=== PATIENT | female | born 2005 | race Caucasian/White ===

== ENCOUNTER 2024-01-25 21:40 | Emergency (ER) | payer OTHER, SELFPAY ==
[2024-01-25 21:42] VITALS: BP 126/70; PULSE 109; RESP 15; TEMP 36.9; O2SAT 99; BMI 25.0
--- NOTE | 2024-01-25 21:58 | ED_ITS ---
Discharge Plan Disposition Patient Disposition: Home, Self-Care Condition: Good Referrals Follow up/Referrals: Summer Morel APRN [Primary Care Provider] - See instructions Clinical Impressions Clinical Impression: Gastritis Instructions Patient Instructions: DI for Diarrhea and Traveler's Diarrhea -- Adult, DI for Diarrhea and Traveler's Diarrhea -- Child, DI for Nausea -- Adult, DI for Nausea -- Child Discharge ED Provider: Bhavani Patino General Adult HPI General Chief complaint: Nausea/Vomiting/Diarrhea Stated complaint: Vomiting black stuff,stated after new med Time Seen by Provider: 01/25/24 21:54 History of Present Illness HPI narrative: This patient is a 18-year-old female with psych PMH presenting to the emergency department for evaluation with concern for vomiting. Patient reports that she has been vomiting for about a week after increasing her home psych medications. She notes that her emesis was initially normal color, however it has turned dark and looks like coffee today. Given this, she decided to come in. She denies any significant pain, but states she does have heartburn. No changes in her bowel movements, such as diarrhea, melena, hematochezia, or other concerns. No other concerns noted at this time. No history of gastric or stomach issues. Related Data Allergies Allergy/AdvReac Type Severity Reaction Status Date / Time No Known Allergies Allergy Verified 01/25/24 22:03 [facility] Disclaimer: The information contained in this section may have been updated after the patient was seen, as this information can be updated by other users. Social History Smoking Status: Current every day smoker alcohol intake: never current occupational status: employed Travel in the last 8 weeks: None ROS Obtained: Yes All systems reviewed & no additional complaints except as documented Physical Exam General General appearance: alert and in no apparent distress Head Head exam: atraumatic and normocephalic Eye Eye exam: Present normal appearance, PERRL and EOMI ENT ENT exam: Present normal exam, normal oropharynx, mucous membranes moist and normal external ear exam Neck Neck exam: Present normal inspection, full ROM and trachea midline; Absent tenderness Chest Chest inspection: Present normal inspection and symmetric chest wall rise; Absent tenderness Respiratory Respiratory exam: Present normal lung sounds bilaterally; Absent respiratory distress, wheezes, stridor or accessory muscle use Cardiovascular Cardiovascular exam: Present regular rate and normal rhythm Abdominal Exam Abdominal exam: Present soft; Absent distention, tenderness or guarding Extremities Exam Extremities exam: Present normal inspection, full ROM and normal capillary refill; Absent tenderness or edema Back Exam Back exam: Present normal inspection and full ROM; Absent tenderness Neurological Exam Neurological exam: Present alert, oriented X3, CN II-XII intact and normal gait; Absent motor sensory deficit Psychiatric Psychiatric exam: Present normal affect and normal mood Skin Skin exam: Present warm and dry Medical Decision Making Medical Records Medical records reviewed: Yes I reviewed the patient's medical records. Jaden Inquiry Pt receiving controlled substance: No Vital Signs: 01/25/24 21:42 01/26/24 00:49 Temperature 98.5 F 97.9 F Temperature Source Oral Oral Pulse Rate 84 Pulse Rate [Right] 109 H Respiratory Rate 15 16 Blood Pressure 112/71 Blood Pressure [Right Arm] 126/70 Blood Pressure Mean [Right Arm] 88 Blood Pressure Source Automatic Cuff Blood Pressure Source [Right Arm] Automatic Cuff Blood Pressure Position Sitting Blood Pressure Position [Right Arm] Sitting 02 Sat by Pulse Oximetry 99 Oxygen Delivery Method Room Air Room Air Lab Data Lab results reviewed: Yes I reviewed the patient's lab results. Lab Results 01/25/24 21:58: Urine Color Yellow, Urine Appearance Slightly cloudy, Urine pH 7.5, Ur Specific [place] 1.025, Urine Protein Negative, Urine Glucose (UA) Negative, Urine Ketones Negative, Urine Blood 3+, Urine Nitrate Negative, Urine Bilirubin Negative, Urine Urobilinogen 0.2, Ur Leukocyte Esterase Negative, Urine RBC 20-50, Urine WBC None, Ur Squamous Epith Cells 3-5, Urine Bacteria Trace 01/25/24 22:00: WBC 5.7, RBC 4.00 L, Hgb 12.5, Hct 38.3, MCV 95.7, MCH 31.3 H, MCHC 32.7, RDW 13.4, Plt Count 304, MPV 7.6, Neut % (Auto) 65.1, Lymph % (Auto) 25.7, [place] % (Auto) 5.6, Eos % (Auto) 2.8, Baso % (Auto) 0.8, Neut # (Auto) 3.7, Lymph # (Auto) 1.5, [place] # (Auto) 0.3, Eos # (Auto) 0.2, Baso # (Auto) 0.0, Sodium 139, Potassium 3.9, Chloride 108 H, Carbon Dioxide 23, Anion Gap 11.9, BUN 15, Creatinine 0.90, Estimated Creat Clear 102, Estimated GFR 81, Est GFR ( Amer) 98, Glucose 102 H, Calcium 9.3, Total Bilirubin 0.2, AST 22, ALT 17, Alkaline Phosphatase 90, Total Protein 7.2, Albumin 4.3, Globulin 2.9, Albumin/Globulin Ratio 1.5, Lipase 80, Serum HCG, Qual Negative 01/25/24 22:00 01/25/24 22:00 Orders (Tests/Meds): ED MEDICATIONS Discontinued Medications Generic Name Dose Route Start Last Admin Trade Name Freq PRN Reason Stop Dose Admin Famotidine 20 mg 01/25/24 21:58 01/25/24 22:03 Famotidine 20mg/2ml Vial IV 01/25/24 21:59 20 mg ONCE ONE Administration Lactated Ringer's 1,000 mls @ 999 mls/hr 01/25/24 21:57 01/25/24 22:03 Lactated Ringer's 1000 Ml Bag IV 01/25/24 22:57 999 mls/hr .Q1H1M ONE Administration Ondansetron HCl 4 mg 01/25/24 21:57 01/25/24 22:03 Ondansetron 4mg/2ml Vial IV 01/25/24 21:58 4 mg ONCE ONE Administration Pantoprazole Sodium 40 mg 01/25/24 21:57 01/25/24 22:03 Pantoprazole 40mg Tablet PO 01/25/24 21:58 40 mg ONCE ONE Administration Sodium Chloride 8 ml 01/25/24 21:58 Sodium Chloride 0.9% 10ml Vial IV 02/24/24 21:57 NEEDED PRN dilute pepcid ORDERS Category Date Time Status Complete Blood Count Auto Diff Stat Lab 01/25/24 22:00 Completed Comprehensive Metabolic Panel Stat Lab 01/25/24 22:00 Completed HCG Qualitative, Serum Stat Lab 01/25/24 22:00 Completed Lipase Stat Lab 01/25/24 22:00 Completed UA [Urinalysis and Microscopic] Stat Lab 01/25/24 21:58 Completed Medical Decision Narrative: In summary, this patient is a 18-year-old presenting to the Emergency Department for evaluation of vomiting with coffee-ground emesis. Differential diagnoses considered include but are not limited to peptic ulcer disease, Gisele-Batres tear, gastritis, esophagitis, pancreatitis, dehydration. Ruling out the most morbid conditions drove assessment. On exam, the patient is well-appearing with benign abdominal exam and reassuring vital signs on cardiac telemetry. Given benign abdominal exam and no localized pain, doubt surgical intra-abdominal pathology at this time. Workup included CBC, CMP, lipase, urinalysis, test. Patient given a bolus of IV fluids as well as IV Pepcid, oral pantoprazole, and IV Zofran for symptomatic improvement. On reassessment, patient is resting company and was able to tolerate oral intake. Symptoms are significantly improved. Abdominal exam is benign. Labs are reassuring. No significant elevation in BUN to suggest significant upper GI bleed. No significant anemia. I feel she likely has esophagitis/gastritis versus Gisele-Batres tear in the setting of several days of vomiting. Given reassuring workup and exam and the fact that she is able to tolerate oral intake now,, feel that she is appropriate for discharge home with close follow-up with her primary care provider for further management of this new medication that she started. I prescribed her pantoprazole and Zofran and she was discharged with strict return precautions. Critical Care Critical Care Time Critical Care Time: No
[2024-01-25] MEDS: PANTOPRAZOLE 40MG TABLET 40 MG PO (22:03)
[2024-01-25] MEDS: FAMOTIDINE 20MG/2ML VIAL 20 MG IV (22:03)
[2024-01-25] MEDS: LACTATED RINGERS 1000ML 1,000 ML 999 ML IV (22:03)
[2024-01-25] MEDS: ONDANSETRON 4MG/2ML VIAL 4 MG IV (22:03)
[2024-01-25 22:04] LABS: Basophils % 0.8 % (0.1-2.0); Eosinophils # 0.2 K/mm3 (0.0-0.4); Eosinophils % 2.8 % (0.1-12.0); Hematocrit 38.3 % (37.0-47.0); Hemoglobin 12.5 g/dL (12.2-16.2); Lymphocytes # 1.5 K/mm3 (0.7-4.5); Lymphocytes % 25.7 % (10-50); Mean Corpuscular HGB Conc 32.7 g/dL (31.8-35.4); Mean Corpuscular Hemoglobin 31.3 pg (27.0-31.2); Mean Corpuscular Volume 95.7 fl (81-99); Mean Platelet Volume 7.6 fl (7.4-10.4); Monocytes # 0.3 K/mm3 (0.1-1.0); Monocytes % 5.6 % (1.7-9.3); Neutrophils # 3.7 K/mm3 (1.8-7.8); Neutrophils % 65.1 % (37.0-80.0); Platelet Count 304 K/mm3 (142-424); Red Cell Distribution Width 13.4 % (11.5-17.5); White Blood Count 5.7 K/mm3 (4.5-13.0)
[2024-01-25 22:13] LABS: Chloride 108 mmol/L (98-107); Sodium 139 mmol/L (136-145)
[2024-01-25 22:14] LABS: Potassium 3.9 mmoL/L (3.5-5.1)
[2024-01-25 22:16] LABS: Alanine Aminotransferase 17 U/L (12-78); Alkaline Phosphatase 90 U/L (38-126); Anion Gap 11.9 mEq/L (5-15); Aspartate Amino Transferase 22 U/L (14-36); Bilirubin,Total 0.2 mg/dl (0.2-1.3); Blood Urea Nitrogen 15 mg/dl (7-17); Carbon Dioxide 23 mmol/L (22.0-30.0); Creatinine Clearance Estimated 102 mL/min (50-200); Estimated Glomerular Filt Rate 81 ml/min (>60); GFR (African American) 98 ML/MIN (>60); Lipase 80 U/L (23-300)
[2024-01-25 22:17] LABS: Albumin Level 4.3 g/dl (3.5-5.0); Albumin/Globulin Ratio 1.5 (1.1-1.8); Calcium 9.3 mg/dl (8.4-10.2); Globulin 2.9 g/dL (1.3-3.2); Glucose 102 mg/dl (74-100); Total Protein,Serum 7.2 g/dl (6.3-8.2)
[2024-01-26 00:49] VITALS: BP 112/71; PULSE 84; RESP 16; TEMP 36.6; O2SAT 99
[2024-01-26 00:49] LABS: Microscopic, Urine URINE MICROSCOPIC (MICROSCOPIC)
[2024-01-26 00:56] LABS: Appearance,Urine Slightly Cloudy (Clear); Color,Urine Yellow (Yellow); PH,Urine 7.5 (5.0-8.5); Protein,Urine Negative (Negative); Specific Gravity, Urine 1.025 (1.005-1.030)
[2024-01-26 00:56] LABS: HCG Qualitative, Serum Negative (Negative)
[2024-01-26 00:57] LABS: Bacteria,Urine Trace /lpf; Bilirubin,Urine Negative (Negative); Blood, Urine 3+ (Negative); Glucose,Urine (UA) Negative (Negative); Ketones,Urine Negative (Negative); Leukocyte Esterase,Urine Negative (Negative); Nitrate,Urine Negative (Negative); RBC,Urine 20-50 #/hpf (0-3); Urobilinogen,Urine 0.2 EU/dl (0.2)
== END 2024-01-25 23:26 | disposition home or self-care (01) ==
PROVIDERS: Emergency Provider Emergency Medicine; PCP Nurse Practitioner Family
DX: K29.00 Acute gastritis without bleeding (principal); R11.2 Nausea with vomiting, unspecified; F17.210 Nicotine dependence, cigarettes, uncomplicated
CPT/HCPCS: 80053; 81001; 83690; 84703; 85025; 96361; 96374; 96375; 99284; J2405

== ENCOUNTER 2024-03-21 14:42 | Emergency (ER) | payer OTHER, SELFPAY ==
[2024-03-21 14:44] VITALS: BP 125/88; PULSE 80; RESP 18; TEMP 36.6; O2SAT 100; BMI 25.7
[2024-03-21 15:00] VITALS: BP 117/85; PULSE 82; O2SAT 98
--- NOTE | 2024-03-21 15:00 | ED_ITS ---
<Statement entered by Colleen Webb MD - 03/21/24 23:01> I was consulted by the EJ, and we discussed the complexity of the problems being addressed. I approved the treatment and management plan for this patient's care in the emergency department, thus performing a substantive portion of the medical decision making. Colleen Webb MD, MARILYN, FACEP Discharge Plan Disposition Patient Disposition: Home, Self-Care Condition: Good Prescriptions Prescriptions: New hydroxyzine pamoate [Vistaril] 25 mg capsule 25 mg PO Q6H PRN (Reason: anxiety) Qty: 14 0RF Referrals Follow up/Referrals: Summer Morel APRN [Primary Care Provider] - See instructions Activity Restrictions/Add. Instructions Additional Instructions/Restrictions: Please follow-up with your PCP and behavioral health as scheduled. Return to the ER for any worsening signs or symptoms or as needed. Clinical Impressions Clinical Impression: Anxiety Instructions Patient Instructions: DI for Anxiety -- Adult Discharge ED Provider: Colleen Webb General Adult HPI General Chief complaint: Recheck/Abnormal Lab/Rx Stated complaint: feel likeelectric shocks thru body,lack of meds Time Seen by Provider: 03/21/24 15:00 Mode of Arrival: Ambulatory Source of Information: Patient Limitations: No Limitations Description of Symptoms (Recalled from ER Triage Doc. by RN): c/o being taken off her medicine risperadole all at once. Pt states that she missed her therapy appt and was unable to get a refill. History of Present Illness HPI narrative: Patient presents for evaluation of paresthesias. Patient has a history of bipolar disorder and reports that she is only risperidone 1 mg twice a day. She has not had in 5 days because she missed an appointment in her therapist would not refill it until next appointment. She reports that she has been having panic attacks and feels like electric shocks running through her body but has no altered sensorium patient denies chest pain fever chills hemoptysis hematochezia melena?chronic diarrhea. Patient states the sensation she has come and go with no provoking events. It happens intermittently Related Data Previous Rx's Medication Instructions Recorded hydroxyzine pamoate 25 mg capsule 25 mg PO Q6H PRN anxiety #14 caps 03/21/24 (Vistaril) Allergies Allergy/AdvReac Type Severity Reaction Status Date / Time No Known Allergies Allergy Verified 01/25/24 22:03 [facility] Disclaimer: The information contained in this section may have been updated after the patient was seen, as this information can be updated by other users. Social History (Updated 01/27/24 @ 15:16 by Bhavani Patino DO) Smoking Status: Unknown if ever smoked alcohol intake: never current occupational status: employed Travel in the last 8 weeks: None ROS Obtained: Yes Systems reviewed as appropriate & no additional complaints except as documented Physical Exam General General appearance: alert and in no apparent distress Eye Eye exam: Present normal appearance Respiratory Respiratory exam: Present normal lung sounds bilaterally Cardiovascular Cardiovascular exam: Present regular rate and normal rhythm Extremities Exam Extremities exam: Present normal inspection and full ROM Neurological Exam Neurological exam: Present alert, oriented X3, CN II-XII intact, normal gait and reflexes normal; Absent motor sensory deficit Psychiatric Psychiatric exam: Present normal affect, normal mood and anxious Medical Decision Making Jaden Inquiry Pt receiving controlled substance: No Vital Signs: 03/21/24 14:44 03/21/24 15:00 Temperature 97.8 F Temperature Source Oral Pulse Rate 82 Pulse Rate [Left Radial] 80 Respiratory Rate 18 Blood Pressure 117/85 Blood Pressure [Right Arm] 125/88 Blood Pressure Mean [Right Arm] 100 Blood Pressure Source [Right Arm] Automatic Cuff Blood Pressure Position [Right Arm] Sitting 02 Sat by Pulse Oximetry 100 98 Oxygen Delivery Method Room Air Orders (Tests/Meds): ED MEDICATIONS Generic Name Dose Route Start Last Admin Trade Name Freq PRN Reason Stop Dose Admin Hydroxyzine Pamoate 25 mg 03/21/24 15:07 Hydroxyzine Pamoate 25mg Capsule PO 03/21/24 15:08 ONCE ONE Medical Decision Narrative: In summary patient is a 19-year-old female who presents to the emergency department for evaluation of paresthesias/anxiety. Patient is hemodynamically stable upon arrival, afebrile. Physical exam is unremarkable and nonfocal although patient does appear to be slightly anxious. She does not currently have symptoms and does not appear to be hyperventilating. Differential diagnosis includes hyperventilation versus panic attack. Initial workup was considered however patient is nonfocal with no neurologic deficits thus deferred. Initial interventions include p.o. Vistaril. I had interactive discussion with the jb toribio that we do not prescribe routine psychiatric medications through the ER and that it seems very unlikely that she was actually having withdrawal from the medication that has no withdrawal profile. Via patient directed decision making and discharge patient was agreeable to follow-up with her therapist as scheduled with a prescription for Vistaril for panic symptoms. Patient to follow-up clos manav with her PCP to reestablish care. Critical Care Critical Care Time Critical Care Time: No
[2024-03-21] MEDS: hydrOXYzine pamoate 25MG CAPSULE 25 MG PO (15:13)
[2024-03-21 15:17] VITALS: BP 117/85; PULSE 84; RESP 20; TEMP 36.6; O2SAT 99
== END 2024-03-21 15:18 | disposition home or self-care (01) ==
PROVIDERS: Emergency Provider Student in an Organized Health Care Education/Training Program; PCP Nurse Practitioner Family
DX: F41.1 Generalized anxiety disorder (principal)
CPT/HCPCS: 99283

== ENCOUNTER 2024-04-01 20:00 | Emergency (ER) | payer OTHER, SELFPAY ==
[2024-04-01 20:01] VITALS: BP 118/75; PULSE 90; RESP 17; TEMP 36.8; O2SAT 99; BMI 25.7
[2024-04-01 20:14] LABS: Microscopic, Urine URINE MICROSCOPIC (MICROSCOPIC)
[2024-04-01 20:16] LABS: Bilirubin,Urine Negative (Negative); Blood, Urine 3+ (Negative); Color,Urine YELLOW (Yellow); Glucose,Urine (UA) Negative (Negative); Ketones,Urine Negative (Negative); Leukocyte Esterase,Urine 3+ (Negative); Nitrate,Urine Negative (Negative); PH,Urine 5.5 (5.0-8.5); Protein,Urine 2+ (Negative); Urobilinogen,Urine 0.2 EU/dl (0.2)
[2024-04-01 20:19] LABS: Appearance,Urine Cloudy (Clear)
[2024-04-01 20:30] LABS: Urine Pregnancy, HCG Qual. Negative (Negative)
--- NOTE | 2024-04-01 20:33 | HMH.EDGENADL ---
Discharge Plan Disposition Chief Complaint: Urogenital-Female Prescriptions Prescriptions: No Action hydroxyzine pamoate [Vistaril] 25 mg capsule 25 mg PO Q6H PRN (Reason: anxiety) Qty: 14 0RF Referrals Follow up/Referrals: Summer Morel APRN [Primary Care Provider] - See instructions Instructions Patient Instructions: DI for Urinary Tract Infection (UTI), DI for Urinary Tract Infection in Children Print Language Print Language: Khmer Discharge ED Provider: Yoly Ibanez Adult [facility] General Chief complaint: Urogenital-Female Stated complaint: poss. UTI Time Seen by Provider: 04/01/24 20:17 Mode of Arrival: Ambulatory Source of Information: Patient and Significant Other Limitations: No Limitations Description of Symptoms (Recalled from ER Triage Doc. by RN): Patient reports that she has had blood in urine, burning, and urgency/frequency for four days. Patient denies fever at home. Related Data Previous Rx's ?Medication ?Instructions ?Recorded hydroxyzine pamoate 25 mg capsule 25 mg PO Q6H PRN anxiety #14 caps 03/21/24 (Vistaril) Allergies Allergy/AdvReac Type Severity Reaction Status Date / Time No Known Allergies Allergy Verified 01/25/24 22:03 [facility] Disclaimer: The information contained in this section may have been updated after the patient was seen, as this information can be updated by other users. Social History (Updated 01/27/24 @ 15:16 by Bhavani Patino DO) Smoking Status: Current every day smoker alcohol intake: never current occupational status: employed Travel in the last 8 weeks: None ROS Obtained: Yes Systems reviewed as appropriate & no additional complaints except as documented Physical Exam General General appearance: alert and in no apparent distress Head Head exam: atraumatic and normal inspection Eye Eye exam: Present normal appearance, PERRL and EOMI ENT ENT exam: Present normal exam, normal oropharynx and mucous membranes moist Neck Neck exam: Present normal inspection, full ROM and trachea midline; Absent lymphadenopathy Chest Chest inspection: Present normal inspection and symmetric chest wall rise Respiratory Respiratory exam: Present normal lung sounds bilaterally; Absent accessory muscle use Cardiovascular Cardiovascular exam: Present regular rate, normal rhythm, normal heart sounds, +S1 and +S2 Abdominal Exam Abdominal exam: Present soft and normal bowel sounds; Absent tenderness, guarding or rebound Extremities Exam Extremities exam: Present normal inspection and full ROM Neurological Exam Neurological exam: Present alert, oriented X3 and CN II-XII intact Psychiatric Psychiatric exam: Present normal affect and normal mood Skin Skin exam: Present warm, dry and normal color Lymphatic Lymphatic Findings: no adenopathy Medical Decision Making Vital Signs: 04/01/24 20:01 Temperature 98.2 F Temperature Source Oral Pulse Rate [Left Radial] 90 Respiratory Rate 17 Blood Pressure [Right Arm] 118/75 Blood Pressure Mean [Right Arm] 89 Blood Pressure Source [Right Arm] Automatic Cuff Blood Pressure Position [Right Arm] Sitting 02 Sat by Pulse Oximetry 99 Oxygen Delivery Method Room Air Lab Data Lab Results 04/01/24 20:10: Urine Color Yellow, Urine Appearance Cloudy, Urine pH 5.5, Ur Specific [place] 1.010, Urine Protein 2+, Urine Glucose (UA) Negative, Urine Ketones Negative, Urine Blood 3+, Urine Nitrate Negative, Urine Bilirubin Negative, Urine Urobilinogen 0.2, Ur Leukocyte Esterase 3+ A, Urine HCG, Qual Negative Orders (Tests/Meds): ORDERS Category Date Time Status Urinalysis and Microscopic Stat Lab 04/01/24 20:10 Results Urine , HCG Qual. Stat Lab 04/01/24 20:10 Completed Urine Culture Stat Micro 04/01/24 20:10 Received Medical Decision Narrative: In summary patient is a [age, sex] who presents to the emergency department for evaluation of [complaint]. Patient is [hemodynamically stable/unstable] upon arrival, [febrile/afebrile]. [Unremarkable physical exam, nonfocal exam versus focal remarkable exam]. Differential diagnosis includes [DDx]. Initial workup will be conducted with [hematologic labs, imaging, respiratory swab, describe workup]. Initial interventions include [crystalloid bolus, medications, p.o. challenge, etc.] initial workup reviewed by me [hematologic labs are remarkable for... Imaging remarkable for... Urinalysis remarkable for]. Upon repeat evaluation [patient had acceptable resolution of symptoms, had persistent pain for which additional interventions were conducted (describe interventions), tolerated p.o., was ambulatory, etc.]. Given this [patient is appropriate for discharge at this time and will be discharged with a prescription for... The case was discussed with hospital medicine regarding management and they will admit the patient their service for continued evaluation at this time... Etc.] Places where you can increase complexity: I informally interpreted the patient's chest x-ray or CT read and is remarkable for... Documenting what the freight checker shows with rate and rhythm Consideration of test but deferring. Ex: I considered chest x-ray on this patient however given that they have no oxygen requirement and are clear to auscultation all lung grossman will be deferred. Social determinants of health: Given that patient is undomiciled increases complexity. Given that patient has polysubstance abuse compounds all aspects of care
[2024-04-01 20:38] LABS: Bacteria,Urine Trace /lpf
--- NOTE | 2024-04-01 20:41 | HMH.EDGENADL ---
Discharge Plan Disposition Patient Disposition: Home, Self-Care Condition: Good Prescriptions Prescriptions: New sulfamethoxazole-trimethoprim [Bactrim DS] 800-160 mg tablet 1 tab PO DAILY 7 Days Qty: 7 0RF No Action hydroxyzine pamoate [Vistaril] 25 mg capsule 25 mg PO Q6H PRN (Reason: anxiety) Qty: 14 0RF Referrals Follow up/Referrals: Summer Morel APRN [Primary Care Provider] - See instructions Activity Restrictions/Add. Instructions Additional Instructions/Restrictions: Your test was negative. Your urinalysis was consistent with a UTI, take Bactrim as prescribed and follow-up with your primary care provider for continued management. Return for any new or worsening symptoms. Clinical Impressions Clinical Impression: UTI (urinary tract infection) Instructions Patient Instructions: DI for Urinary Tract Infection (UTI) Print Language Print Language: Citizen Of [place] Discharge ED Provider: Yoly Ibanez General Adult HPI General Chief complaint: Urogenital-Female Stated complaint: poss. UTI Time Seen by Provider: 04/01/24 20:17 Mode of Arrival: Ambulatory Source of Information: Patient and Significant Other Limitations: No Limitations Description of Symptoms (Recalled from ER Triage Doc. by RN): Patient reports that she has had blood in urine, burning, and urgency/frequency for four days. Patient denies fever at home. History of Present Illness HPI narrative: Patient is a 19-year-old female with past medical history anxiety and gastritis presenting with dysuria and some hematuria that has been ongoing over the past 4 days. She denies any abdominal pain or fevers. She was concerned that she has UTI prompting her presentation. She has no history of recurrent UTIs or concern for STI. Related Data Previous Rx's ?Medication ?Instructions ?Recorded hydroxyzine pamoate 25 mg capsule 25 mg PO Q6H PRN anxiety #14 caps 03/21/24 (Vistaril) sulfamethoxazole 800 1 tab PO DAILY 7 days #7 tabs 04/01/24 mg-trimethoprim 160 mg tablet (Bactrim DS) Allergies Allergy/AdvReac Type Severity Reaction Status Date / Time No Known Allergies Allergy Verified 01/25/24 22:03 [facility] Disclaimer: The information contained in this section may have been updated after the patient was seen, as this information can be updated by other users. Social History (Updated 01/27/24 @ 15:16 by LALO Simons Smoking Status: Current every day smoker alcohol intake: never current occupational status: employed Travel in the last 8 weeks: None ROS Obtained: Yes Systems reviewed as appropriate & no additional complaints except as documented Physical Exam General General appearance: alert and in no apparent distress Respiratory Respiratory exam: Present normal lung sounds bilaterally; Absent respiratory distress Cardiovascular Cardiovascular exam: Present regular rate and normal rhythm Abdominal Exam Abdominal exam: Present soft; Absent tenderness Neurological Exam Neurological exam: Present alert and oriented X3 Medical Decision Making Medical Records Medical records reviewed: Yes I reviewed the patient's medical records. Jaden Inquiry Pt receiving controlled substance: No Jaden was queried for this patient: No Vital Signs: 04/01/24 20:01 Temperature 98.2 F Temperature Source Oral Pulse Rate [Left Radial] 90 Respiratory Rate 17 Blood Pressure [Right Arm] 118/75 Blood Pressure Mean [Right Arm] 89 Blood Pressure Source [Right Arm] Automatic Cuff Blood Pressure Position [Right Arm] Sitting 02 Sat by Pulse Oximetry 99 Oxygen Delivery Method Room Air Lab Data Lab results reviewed: Yes I reviewed the patient's lab results. Lab Results 04/01/24 20:10: Urine Color Yellow, Urine Appearance Cloudy, Urine pH 5.5, Ur Specific [place] 1.010, Urine Protein 2+, Urine Glucose (UA) Negative, Urine Ketones Negative, Urine Blood 3+, Urine Nitrate Negative, Urine Bilirubin Negative, Urine Urobilinogen 0.2, Ur Leukocyte Esterase 3+ A, Urine RBC 5-10, Urine WBC 10-20, Ur Squamous Epith Cells 3-5, Urine Bacteria Trace, Urine HCG, Qual Negative Orders (Tests/Meds): ORDERS Category Date Time Status Urinalysis and Microscopic Stat Lab 04/01/24 20:10 Completed Urine , HCG Qual. Stat Lab 04/01/24 20:10 Completed Urine Culture Stat Micro 04/01/24 20:10 Received Medical Decision Narrative: Patient is a 19-year-old female with past medical history anxiety and gastritis presenting with concern for UTI symptoms of dysuria and hematuria over the past 2 days. She denies any abdominal pain or fevers. She does not have any abdominal tenderness to palpation, is hemodynamically stable and exam is unremarkable. Her urinalysis is consistent with a UTI and urine test negative. Prescribe Bactrim to preferred pharmacy and discharged in stable condition. Critical Care Critical Care Time Critical Care Time: No
[2024-04-01 20:54] VITALS: BP 110/68; PULSE 78; RESP 18; TEMP 36.8; O2SAT 98
--- NOTE | 2024-04-05 09:57 | PC.NURSE ---
attempted to call pt and other contacts listed in pt chart with no answer for any of those contacts at this time, pt to be updated about change of medicine for her final urine culture results after discussing with , will call back at a later time.
--- NOTE | 2024-04-05 10:45 | PC.NURSE ---
pt updated about new scrip for antibiotic
== END 2024-04-01 20:55 | disposition home or self-care (01) ==
PROVIDERS: Emergency Provider Emergency Medicine; PCP Nurse Practitioner Family
DX: N39.0 Urinary tract infection, site not specified (principal); B96.89 Other specified bacterial agents as the cause of diseases classified elsewhere; R30.0 Dysuria; R35.0 Frequency of micturition; R39.15 Urgency of urination
CPT/HCPCS: 81001; 81025; 87086; 87088; 87186; 99283